=== PATIENT | male | born 1975 | race Caucasian/White ===

== ENCOUNTER 2017-11-05 12:16 | Emergency (ER) | payer SELFPAY ==
[2017-11-05] MEDS ORDERED: DEXAMETHASONE INJ 4 MG/ML VIAL IM ONE (12:32)
[2017-11-05] MEDS ORDERED: KETOROLAC TROMETHAMINE INJ 60 MG/2 ML VIAL IM ONE (12:32)
--- NOTE | 2017-11-05 12:39 | ED.PDOC ---
History of Present Illness - General Chief Complaint: General Stated Complaint: pain to left knee; recurrent gout Time Seen by Provider: 11/05/17 12:32 Source: patient Exam Limitations: no limitations - History of Present Illness Initial Comments: patient comes in today with 3 day history of swelling, pain, and redness to the left knee. Patient has had no injury or trauma to the area. He states he has been having recurrent gout for the past several years and this is consistent with his outbreak. Patient states he was given as needed prednisone to take but he is out of his prescription at this time. Patient does not take anything for prophylaxis is not on any chronic medications. He states he very rarely drinks but does feel like this exacerbation was started after he ate some sausage. He does not have any fever, chills, nausea or vomiting. He otherwise has no past medical history. Timing/Duration: getting worse Severity: severe Improving Factors: rest Worsening Factors: movement Associated Symptoms: denies symptoms Home Medications: Ambulatory Orders Indomethacin 25 mg PO BID #10 cap 11/05/17 predniSONE 40 mg PO DAILY #10 tab 11/05/17 Review of Systems - Review of Systems Constitutional: States: no symptoms reported. Denies: chills, fever EENTM: States: no symptoms reported Respiratory: States: no symptoms reported. Denies: cough, orthopnea, wheezing Cardiology: States: no symptoms reported. Denies: chest pain, palpitations Gastrointestinal/Abdominal: States: no symptoms reported. Denies: abdominal pain, nausea, vomiting Genitourinary: States: no symptoms reported Musculoskeletal: States: see HPI Past Medical History (General) - Patient Medical History Hx Other - free text: Gout Physical Exam - Physical Exam General Appearance: No apparent distress Eye Exam: bilateral normal Neck: non-tender, normal inspection Respiratory: chest non-tender, lungs clear, normal breath sounds, no respiratory distress Cardiovascular/Chest: normal peripheral pulses, regular rate, rhythm, no edema, no gallop, no JVD, no murmur Extremity: other - L knee with slight calor, effusion, no bruising or instability Progress - Progress Progress: 11/05/17 12:41 patient has known gout and this is consistent with his past outbreaks. Toradol and Decadron given here in the emergency room. He was given a prescription for indomethacin and prednisone. We did discuss that he would be a candidate for prophylactic treatment and after this acute exacerbation he should follow-up with his PCP to discuss that. We have given him diet recommendations Departure - Departure Clinical Impression: Gout attack Qualifiers: Gout site: knee Gout etiology: other secondary cause Laterality: left Qualified Code(s): M10.462 - Other secondary gout, left knee Disposition: Discharge to Home or Self Care Condition: Fair Departure Forms: ED Discharge - Pt. Copy, Patient Portal Self Enrollment Diet: other - gout diet handout Home Medications: Ambulatory Orders Indomethacin 25 mg PO BID #10 cap 11/05/17 predniSONE 40 mg PO DAILY #10 tab 11/05/17 Additional Instructions: patient should follow-up with his PCP after initial attack to discuss prophylactic treatment. Return to ER for failure to improve, worsening of symptoms,or change in presentation.
[2017-11-05 12:40] VITALS: TEMP 97.8
[2017-11-05 13:13] VITALS: BP 138/86; O2SAT 98
== END 2017-11-05 13:06 | disposition home or self-care (01) ==
LOC: ER 12:16
DX: M10.462 Other secondary gout, left knee (principal)

== ENCOUNTER → 2019-08-03 | Outpatient (CLI) | payer BC ==
--- NOTE | 2019-08-04 09:17 | RAD ---
EXAM DESCRIPTION: Knee,Left 1 or 2 Views: CR/DR/XR. CLINICAL HISTORY: IDIOPATHIC GOUT LEFT KNEE COMPARISON: Foot and left ankle radiographs in October 2008. TECHNIQUE/FINDINGS: 2 views left knee. Large suprapatellar effusion. Possible posterior joint capsule effusion. Mild medial compartment narrowing. Bone density borderline low. No acute bony abnormality. No abnormal radiodense objects in the soft tissues. No marginal erosions or spurs.. IMPRESSION: Infrapatellar effusion and possible posterior effusion. Minimal medial compartment narrowing. Borderline mild loss of bone mineral density. No specific findings of gouty arthritis. Consider osteoporosis screening. Electronically signed by: Andrea Pop MD 08/04/2019 9:15 AM [facility]
== END ==
LOC: LAB.O 11:51
PROVIDERS: ATTEND Registered Nurse General Practice
DX: M10.062 Idiopathic gout, left knee (principal); M25.462 Effusion, left knee; M25.862 Other specified joint disorders, left knee

== ENCOUNTER → 2019-10-10 | Outpatient (CLI) | payer BC ==
--- NOTE | 2019-10-10 13:39 | CT ---
EXAM DESCRIPTION: Abdomen w/wo Contrast CLINICAL HISTORY: 44 years Male, RUQ PAIN COMPARISON: None Available. TECHNIQUE: CT of the abdomen is performed prior to and during IV bolus administration of iodinated intravenous contrast. No oral contrast media was administered. FINDINGS: The lung bases are clear. The liver is normal in size and enhancement. The gallbladder is normal in appearance without calcified gallstones or pericholecystic inflammatory changes. No biliary duct dilatation. The spleen, pancreas, and kidneys are unremarkable. No hydronephrosis or nephrolithiasis. The adrenal glands are normal. There is no lymphadenopathy, inflammation, or free fluid observed. Partially visualized scattered colonic diverticula without evidence of diverticulitis. The appendix is normal. No acute osseous abnormality. IMPRESSION: 1. No acute intra-abdominal process on CT. 2. Mild diverticulosis. This exam was performed according to our departmental dose-optimization program, which includes automated exposure control, adjustment of the mA and/or kV according to patient size and/or use of iterative reconstruction technique. Electronically signed by: Ken Quarles DO 10/10/2019 1:37 PM CDT
== END ==
LOC: LAB.O 11:36
PROVIDERS: ATTEND Registered Nurse General Practice
DX: K57.90 Diverticulosis of intestine, part unspecified, without perforation or abscess without bleeding (principal)